=== PATIENT | male | born 1990 | race Caucasian/White ===

== ENCOUNTER 2023-12-28 12:20 | Inpatient (IN) | payer MEDICAID, OTHER ==
[~2023-12-28] VITALS: Ht 180.3 cm; Wt 72.6 kg
[2023-12-28 12:20] VITALS: BP_SYST 124; PULSE 101; RESP 17; TEMP 97.1; O2SAT 97
[2023-12-28 14:49] LABS: EOSINOPHILS # (AUTO) 0.2 K/uL (0.0-0.4); EOSINOPHILS % (AUTO) 4.9 % (0.0-4.0); HEMATOCRIT 35.6 % (36-54); HEMOGLOBIN 12.3 g/dL (14.0-18.0); LYMPHOCYTES # (AUTO) 1.3 K/uL (1.0-5.5); LYMPHOCYTES % (AUTO) 29.6 % (20.5-51.5); MEAN CORPUSCULAR HEMOGLOBIN 29 pg (27-31); MEAN CORPUSCULAR HGB CONC 35 % (32-36); MEAN CORPUSCULAR VOLUME 85 fL (79.0-98.0); MONOCYTES # (AUTO) 0.4 K/uL (0.0-1.0); PLATELET COUNT (AUTO) 284 K/uL (130-430); RED BLOOD CELL COUNT(AUTO) 4.18 MIL/uL (4.2-6.2); RED CELL DISTRIBUTION WIDTH 13.1 % (9.0-15.0); WHITE BLOOD COUNT (AUTO) 4.4 K/uL (4.8-10.8)
[2023-12-28] MEDS: DEXAMETHASONE SOD PHOSPHATE 10 MG/ML VIAL IVP ONE (14:55)
[2023-12-28] MEDS: DIPHENHYDRAMINE INJ 50 MG/ML VIAL IVP ONE (14:55)
[2023-12-28 14:58] LABS: CALCIUM 9.1 mg/dL (8.4-11.0); CREATININE 0.83 mg/dL (0.55-1.30); POTASSIUM 3.5 mmol/L (3.5-5.1)
[2023-12-28 15:02] LABS: PROTHROMBIN TIME 10.1 SECS (9.5-12.5)
[2023-12-28 15:05] LABS: BASOPHILS % (AUTO) 0.9 % (0.0-2.0); NEUTROPHILS # (AUTO) 2.5 K/uL (1.8-7.7); NEUTROPHILS % (AUTO) 55.6 % (40.0-70.0)
[2023-12-28 20:30] VITALS: BP_SYST 108; PULSE 75; RESP 18; TEMP 97.6
[2023-12-28] MEDS: fentaNYL CITRATE/PF 100 MCG/2 ML AMP ONE (21:57)
[2023-12-28] MEDS ORDERED: NS IRRIG SOLN 1000 ML IR ONE (22:00)
[2023-12-28] MEDS ORDERED: BUPIVACAINE /PF 0.25% 30 ML VIAL INJ ONE (22:00)
[2023-12-28] MEDS ORDERED: WATER FOR IRRIGATION,STERILE 1,000 ML IRRIG.SOLN IR ONE (22:00)
[2023-12-28] MEDS ORDERED: PROPOFOL 200MG/ 20ML VIAL (DIPRIVAN) IV ONE (22:00)
[2023-12-28] MEDS ORDERED: ePHEDrine sulfate 50 MG/ML VIAL ONE (22:00)
[2023-12-28] MEDS ORDERED: PHENYLEPHRINE HCL 10 MG/ML VIAL (NEOSYNEPHRINE) ONE (22:00)
[2023-12-28] MEDS ORDERED: CEFAZOLIN 2 GM IVPB PREMIX 50 ML IV ONE (22:00)
[2023-12-28] MEDS ORDERED: SEVOFLURANE 15 MIN GAS INH ONE (22:00)
[2023-12-28] MEDS ORDERED: LR 1,000 ML IV.SOLN IV ONE (22:00)
[2023-12-28] MEDS ORDERED: SUCCINYLCHOLINE CHLORIDE 20 MG/ML(QUELICIN) ONE (22:00)
[2023-12-28] MEDS ORDERED: DEXAMETHASONE SOD PHOSPHATE 4 MG/ML VIAL ONE (22:00)
[2023-12-28] MEDS ORDERED: ONDANSETRON HCL 4 MG/2 ML VIAL ONE (22:00)
[2023-12-28] MEDS ORDERED: NALOXONE HCL 0.4 MG/ML AMP (NARCAN) IVP PRN (22:45)
[2023-12-28] MEDS ORDERED: DIPHENHYDRAMINE INJ 50 MG/ML VIAL IVP PRN (22:45)
[2023-12-28] MEDS ORDERED: ONDANSETRON HCL 4 MG/2 ML VIAL IVP PRN (22:45)
[2023-12-28] MEDS ORDERED: MORPHINE 4 MG INJ. 4 MG/ML VIAL IVP PRN (22:45)
[2023-12-28] MEDS ORDERED: cloNIDine HCL 0.1 MG TABLET PO PRN (22:45)
[2023-12-28] MEDS ORDERED: ACETAMINOPHEN 325 MG TABLET PO PRN (22:45)
[2023-12-28] MEDS: cloNIDine HCL 0.1 MG TABLET PO SCH (22:45)
[2023-12-28] MEDS ORDERED: HYDROcodone/ACETAMIN 10-325 MG TAB PO PRN (22:45)
[2023-12-29] VITALS (15 sets, daily range): BP systolic 92–124; PULSE 73–99; RESP 18; TEMP 96.4–98.2; O2SAT 96–100
[2023-12-29] MEDS ORDERED: AMPICILLIN SODIUM/SULBACTAM NA 3 GM in NS 100 ML IV SCH
[2023-12-29] MEDS ORDERED: NALOXONE HCL 0.4 MG/ML AMP (NARCAN) IVP PRN (00:15)
[2023-12-29] MEDS ORDERED: HYDROmorphone 1 MG/ML INJ. CARTRIDGE IVP PRN (00:15)
[2023-12-29] MEDS ORDERED: ONDANSETRON HCL 4 MG/2 ML VIAL IVP PRN (00:15)
[2023-12-29] MEDS ORDERED: MORPHINE 4 MG INJ. 4 MG/ML VIAL IVP PRN ×2 (00:15)
[2023-12-29] MEDS ORDERED: METOCLOPRAMIDE HCL 10 MG/2 ML VIAL IVP PRN (00:15)
[2023-12-29] MEDS: AMPICILLIN SODIUM/SULBACTAM NA 3 GM VIAL ONE (03:33)
[2023-12-29] MEDS: AMPICILLIN SODIUM/SULBACTAM NA 3 GM in NS 100 ML IV SCH (03:36)
[2023-12-29 12:58] LABS: BASOPHILS % (AUTO) 0.3 % (0.0-2.0); EOSINOPHILS % (AUTO) 0.1 % (0.0-4.0); HEMOGLOBIN 12.1 g/dL (14.0-18.0); LYMPHOCYTES % (AUTO) 13.8 % (20.5-51.5); MEAN CORPUSCULAR HEMOGLOBIN 29 pg (27-31); MEAN CORPUSCULAR HGB CONC 34 % (32-36); MEAN CORPUSCULAR VOLUME 85 fL (79.0-98.0); MONOCYTES # (AUTO) 0.3 K/uL (0.0-1.0); NEUTROPHILS # (AUTO) 5.8 K/uL (1.8-7.7); NEUTROPHILS % (AUTO) 81.8 % (40.0-70.0); PLATELET COUNT (AUTO) 266 K/uL (130-430); RED BLOOD CELL COUNT(AUTO) 4.23 MIL/uL (4.2-6.2); RED CELL DISTRIBUTION WIDTH 13.3 % (9.0-15.0); WHITE BLOOD COUNT (AUTO) 7.1 K/uL (4.8-10.8)
[2023-12-29 13:11] LABS: CALCIUM 8.9 mg/dL (8.4-11.0); CREATININE 0.78 mg/dL (0.55-1.30); POTASSIUM 3.5 mmol/L (3.5-5.1); TOTAL BILIRUBIN 0.2 mg/dL (0.0-1.0); TOTAL PROTEIN, SERUM 6.9 g/dL (6.4-8.3)
[2023-12-30 00:04] VITALS: BP_SYST 99; PULSE 89; RESP 18; TEMP 98.1; O2SAT 97
[2023-12-30 08:30] VITALS: BP_SYST 104; PULSE 65; RESP 18; TEMP 97.5; O2SAT 100
[2023-12-30 10:00] VITALS: O2SAT 100
[2023-12-30 11:26] VITALS: BP_SYST 108; PULSE 71; RESP 16; TEMP 97.7; O2SAT 99
[2023-12-30 15:14] VITALS: BP_SYST 103; PULSE 70; RESP 16; TEMP 97.2; O2SAT 96
[2023-12-30] MEDS: METHADONE HCL 10 MG TABLET PO ONE (16:44)
[2023-12-30 20:16] VITALS: BP_SYST 103; PULSE 80; RESP 20; TEMP 96.6; O2SAT 98
[2023-12-31 00:56] VITALS: BP_SYST 106; RESP 18; TEMP 96.9; O2SAT 96
[2023-12-31 08:34] VITALS: BP_SYST 109; PULSE 73; RESP 18; TEMP 97.4; O2SAT 98
[2023-12-31 10:01] VITALS: O2SAT 97
[2023-12-31] MEDS: METHADONE HCL 10 MG TABLET PO SCH (10:58)
[2023-12-31 11:18] VITALS: BP_SYST 106; PULSE 86; RESP 16; TEMP 96.8; O2SAT 100
[2023-12-31 15:18] VITALS: BP_SYST 108; PULSE 81; RESP 16; TEMP 97; O2SAT 97
[2023-12-31 19:41] VITALS: BP_SYST 106; PULSE 74; RESP 20; TEMP 96.8; O2SAT 96; O2SAT 98
[2024-01-01 00:41] VITALS: BP_SYST 107; PULSE 68; RESP 18; TEMP 96.3; O2SAT 94
[2024-01-01 08:00] VITALS: BP_SYST 111; PULSE 71; RESP 20; TEMP 98; O2SAT 96
[2024-01-01 16:00] VITALS: BP_SYST 118; PULSE 70; RESP 18; TEMP 97.7; O2SAT 97
[2024-01-01 20:00] VITALS: BP_SYST 112; PULSE 70; RESP 18; TEMP 97.8; O2SAT 97
[2024-01-02] VITALS: BP_SYST 113; PULSE 68; RESP 18; TEMP 97.5; O2SAT 96
[2024-01-02 05:46] LABS: BASOPHILS # (AUTO) 0.1 K/uL (0.0-0.2); BASOPHILS % (AUTO) 1.4 % (0.0-2.0); EOSINOPHILS # (AUTO) 0.3 K/uL (0.0-0.4); EOSINOPHILS % (AUTO) 5.9 % (0.0-4.0); HEMATOCRIT 42.2 % (36-54); HEMOGLOBIN 14.2 g/dL (14.0-18.0); LYMPHOCYTES # (AUTO) 1.3 K/uL (1.0-5.5); LYMPHOCYTES % (AUTO) 24.2 % (20.5-51.5); MEAN CORPUSCULAR HEMOGLOBIN 29 pg (27-31); MEAN CORPUSCULAR HGB CONC 34 % (32-36); MEAN CORPUSCULAR VOLUME 85 fL (79.0-98.0); MONOCYTES # (AUTO) 0.4 K/uL (0.0-1.0); MONOCYTES % (AUTO) 6.5 % (1.7-9.3); NEUTROPHILS # (AUTO) 3.3 K/uL (1.8-7.7); PLATELET COUNT (AUTO) 261 K/uL (130-430); RED BLOOD CELL COUNT(AUTO) 4.96 MIL/uL (4.2-6.2); RED CELL DISTRIBUTION WIDTH 12.9 % (9.0-15.0); WHITE BLOOD COUNT (AUTO) 5.4 K/uL (4.8-10.8)
[2024-01-02 06:00] LABS: CALCIUM 9.7 mg/dL (8.4-11.0); CREATININE 0.63 mg/dL (0.55-1.30); POTASSIUM 5.4 mmol/L (3.5-5.1)
[2024-01-02 08:23] VITALS: BP_SYST 143; PULSE 89; RESP 18; TEMP 96.1; O2SAT 98
[2024-01-02 08:56] VITALS: BP_SYST 143; PULSE 89; O2SAT 98
[2024-01-02 12:35] VITALS: BP_SYST 110; PULSE 108; RESP 18; TEMP 98.4; O2SAT 100
[2024-01-02 16:00] VITALS: BP_SYST 148; PULSE 88; RESP 16; TEMP 97.8; O2SAT 99
[2024-01-02 20:00] VITALS: BP_SYST 102; PULSE 91; RESP 18; TEMP 97.8; O2SAT 95
[2024-01-03] VITALS: BP_SYST 125; PULSE 78; RESP 18; TEMP 97.5; O2SAT 96
[2024-01-03 08:05] VITALS: BP_SYST 106; PULSE 89; RESP 16; TEMP 98.2; O2SAT 100
[2024-01-03 09:39] VITALS: O2SAT 100
[2024-01-03 12:00] VITALS: BP_SYST 94; PULSE 98; RESP 18; TEMP 98; O2SAT 94
[2024-01-03 16:00] VITALS: BP_SYST 110; PULSE 88; RESP 18; TEMP 98; O2SAT 99
[2024-01-03 20:00] VITALS: BP_SYST 109; PULSE 89; RESP 18; TEMP 97.8; O2SAT 97
[2024-01-04 00:17] VITALS: BP_SYST 108; PULSE 78; RESP 17; TEMP 96.4; O2SAT 96
[2024-01-04 06:30] LABS: BASOPHILS # (AUTO) 0.1 K/uL (0.0-0.2); BASOPHILS % (AUTO) 1.4 % (0.0-2.0); EOSINOPHILS # (AUTO) 0.2 K/uL (0.0-0.4); EOSINOPHILS % (AUTO) 4.7 % (0.0-4.0); HEMOGLOBIN 12.5 g/dL (14.0-18.0); LYMPHOCYTES # (AUTO) 1.4 K/uL (1.0-5.5); LYMPHOCYTES % (AUTO) 28.3 % (20.5-51.5); MEAN CORPUSCULAR HEMOGLOBIN 29 pg (27-31); MEAN CORPUSCULAR HGB CONC 34 % (32-36); MEAN CORPUSCULAR VOLUME 85 fL (79.0-98.0); MONOCYTES # (AUTO) 0.5 K/uL (0.0-1.0); MONOCYTES % (AUTO) 9.2 % (1.7-9.3); NEUTROPHILS # (AUTO) 2.8 K/uL (1.8-7.7); NEUTROPHILS % (AUTO) 56.4 % (40.0-70.0); PLATELET COUNT (AUTO) 195 K/uL (130-430); RED BLOOD CELL COUNT(AUTO) 4.37 MIL/uL (4.2-6.2); RED CELL DISTRIBUTION WIDTH 13.1 % (9.0-15.0); WHITE BLOOD COUNT (AUTO) 4.9 K/uL (4.8-10.8)
[2024-01-04 07:00] LABS: ALBUMIN 3.1 g/dL (3.4-4.8); CALCIUM 9.1 mg/dL (8.4-11.0); CREATININE 0.74 mg/dL (0.55-1.30); POTASSIUM 4.1 mmol/L (3.5-5.1); TOTAL BILIRUBIN 0.2 mg/dL (0.0-1.0); TOTAL PROTEIN, SERUM 6.9 g/dL (6.4-8.3)
[2024-01-04 08:20] VITALS: BP_SYST 111; PULSE 76; RESP 16; TEMP 97.6; O2SAT 76
[2024-01-04 10:06] VITALS: O2SAT 98
[2024-01-04 18:19] VITALS: BP_SYST 110; PULSE 80; RESP 18; TEMP 98; O2SAT 99
[2024-01-04 19:00] VITALS: BP_SYST 128; PULSE 86; RESP 18; TEMP 97.7; O2SAT 99
[2024-01-04 20:00] VITALS: BP_SYST 128; PULSE 86; RESP 18; TEMP 97.7; O2SAT 99
[2024-01-05] VITALS (8 sets, daily range): BP systolic 108–118; PULSE 70–84; RESP 18–20; TEMP 97.7–98; O2SAT 96–99
[2024-01-06] VITALS: BP_SYST 126; PULSE 68; RESP 18; TEMP 97.5
[2024-01-06 04:00] VITALS: BP_SYST 119; PULSE 82; RESP 18; TEMP 97.7; O2SAT 99
[2024-01-06 08:08] VITALS: BP_SYST 114; PULSE 76; RESP 18; TEMP 97.5; O2SAT 97
[2024-01-06 09:35] VITALS: O2SAT 97
[2024-01-06 12:00] VITALS: BP_SYST 110; PULSE 85; RESP 18; TEMP 98.3; O2SAT 98
[2024-01-06 17:03] VITALS: BP_SYST 110; PULSE 81; RESP 18; TEMP 98.4; O2SAT 98
== END 2024-01-06 18:30 | disposition short-term general hospital (02) | DRG 364 ==
LOC: SED 12:20 → SMU 16:58
PROVIDERS: ADMIT Internal Medicine; ATTEND Internal Medicine
PROC: 0WJ60ZZ Inspection of Neck, Open Approach (ICD-10-PCS; principal; 2023-12-29)
DX: S11.84XA Puncture wound with foreign body of other specified part of neck, initial encounter (principal); E44.1 Mild protein-calorie malnutrition; F19.10 Other psychoactive substance abuse, uncomplicated; J45.909 Unspecified asthma, uncomplicated; X58.XXXA Exposure to other specified factors, initial encounter; Y93.89 Activity, other specified; Y92.89 Other specified places as the place of occurrence of the external cause; Y99.8 Other external cause status; Z91.041 Radiographic dye allergy status; Z68.22 Body mass index [BMI] 22.0-22.9, adult
CPT/HCPCS: 36415; 70360; 70490; 70491; 71045; 71250-TC; 76000; 76376; 80048; 80053; 83605; 85025; 85610; 85730; 94010; 94760; 96374; 96375; 99285; J0295; J0330; J0690; J1100; J1200; J2370; J2405; J2704; J3010; J3490; J7120

== ENCOUNTER 2024-06-25 21:54 | Emergency (ER) | payer MEDICAID, OTHER ==
[~2024-06-25] VITALS: Ht 177.8 cm; Wt 59.0 kg
[2024-06-25] MEDS ORDERED: NALOXONE HCL 0.4 MG/ML AMP (NARCAN) ONE (22:00)
[2024-06-25] MEDS: NALOXONE HCL 0.4 MG/ML AMP (NARCAN) IM ONE (22:02)
[2024-06-25 22:03] VITALS: BP_SYST 105; PULSE 67; RESP 12; TEMP 97; O2SAT 97
[2024-06-25 23:47] VITALS: BP_SYST 105; PULSE 67; RESP 12; TEMP 97; O2SAT 97
== END 2024-06-25 22:13 | disposition home or self-care (01) ==
LOC: SED 21:54
DX: T40.1X4A Poisoning by heroin, undetermined, initial encounter (principal); R53.83 Other fatigue; J45.909 Unspecified asthma, uncomplicated; Z91.040 Latex allergy status; Y92.89 Other specified places as the place of occurrence of the external cause
CPT/HCPCS: 99283; 96372; J2310